=== PATIENT | female | born 1975 | race Caucasian/White ===

== ENCOUNTER 2020-07-29 11:27 | Emergency (ER) | payer OTHER ==
[2020-07-29] MEDS ORDERED: MAG HYDROX/AL HYDROX/SIMETH -MYLANTA- ORAL SUSPENSION PO ONE (11:43)
[2020-07-29] MEDS ORDERED: FAMOTIDINE 20 MG/50 ML IVPB 20 MG in PREMIX 50 IVPB ONE (11:43)
[2020-07-29 11:49] VITALS: TEMP 99.2; BMI 32.9
[2020-07-29] MEDS ORDERED: MAG HYDROX/AL HYDROX/SIMETH 30 ML UNIT-DOSE CUP ONE (12:01)
[2020-07-29] MEDS ORDERED: FAMOTIDINE 20 MG/50 ML IVPB 20 MG/50 ML MG IVPB ONE (12:01)
[2020-07-29] MEDS ORDERED: ASPIRIN 81 MG CHEWABLE TABLETS PO ONE (12:05)
[2020-07-29] MEDS ORDERED: ASPIRIN 81 MG CHEWABLE TABLETS ONE (12:13)
[2020-07-29 12:48] LABS: EOS % 0.2 % (0-4.5)
[2020-07-29 12:56] LABS: BASO % 1.2 % (0-2.0); HEMOGLOBIN 15.9 GM/dl (10.7-15.3); MCH 30.7 pg (25.7-33.7); MCHC 34.6 g/dl (32.0-36.0); MEAN CELL VOLUME 88.9 fl (80-96); MEAN PLT VOLUME 9.6 fl (7.5-11.1); MONO % 5.2 % (3.8-10.2); NEUT % 80.4 % (42.8-82.8); PLATELET COUNT 222 K/MM3 (134-434); RBC 5.17 M/mm3 (3.60-5.2); WHITE BLOOD COUNT 12.4 K/mm3 (4.0-10.8)
[2020-07-29 13:00] LABS: ALBUMIN 4.9 g/dl (3.4-5.0); CALCIUM 9.6 mg/dl (8.5-10); CREATININE 0.7 mg/dl (0.55-1.3); POTASSIUM 4.1 mmol/L (3.5-5.1); TOT PROT 8.3 g/dl (6.4-8.2)
[2020-07-29 15:53] VITALS: BP 150/83; PULSE 75
== END 2020-07-29 15:58 | disposition home or self-care (01) ==
LOC: FER 11:27
PROC: 3E033GC Introduction of Other Therapeutic Substance into Peripheral Vein, Percutaneous Approach (ICD-10-PCS; principal; 2020-07-29)
DX: R07.9 Chest pain, unspecified (principal)
CPT/HCPCS: 36415; 80053; 82550; 84484; 84703; 85025; 93005; 99284-25